=== PATIENT | male | born 1955 | race Caucasian/White ===

== ENCOUNTER 2021-04-27 19:46 | Emergency (ER) | payer OTHER, BC ==
[~2021-04-27] VITALS: Ht 170.2 cm; Wt 95.3 kg
[2021-04-27 19:57] VITALS: BP_SYST 123
[2021-04-27] MEDS ORDERED: LIDOCAINE PATCH 5% 1 EA TP ONE ×2 (22:15→22:37)
[2021-04-27] MEDS ORDERED: KETOROLAC TROMETHAMINE 30 MG VIAL IM ONE (22:15)
[2021-04-27] MEDS ORDERED: METH-634 PO (22:53)
[2021-04-27 23:00] VITALS: BP_SYST 123
== END 2021-04-27 23:00 | disposition home or self-care (01) ==
LOC: SED 19:46
DX: S39.012A Strain of muscle, fascia and tendon of lower back, initial encounter (principal); Z79.899 Other long term (current) drug therapy; W18.39XA Other fall on same level, initial encounter; Y93.89 Activity, other specified; Y92.89 Other specified places as the place of occurrence of the external cause; Y99.8 Other external cause status
CPT/HCPCS: 72128; 72131; 76376; 96372; 99285; J1885